=== PATIENT | male | born 1975 | race African-American/Black ===

== ENCOUNTER 2018-09-06 17:26 | Emergency (ER) | payer SELFPAY ==
[~2018-09-06] VITALS: Ht 177.8 cm; Wt 65.0 kg
[2018-09-06 17:32] VITALS: BP 125/81
== END 2018-09-06 20:00 | disposition left against medical advice (07) ==
LOC: ER 17:43
DX: F10.129 Alcohol abuse with intoxication, unspecified (principal); Z53.21 Procedure and treatment not carried out due to patient leaving prior to being seen by health care provider